=== PATIENT | male | born 1990 | race Caucasian/White ===

== ENCOUNTER → 2019-02-25 | Outpatient (CLI) | payer BC ==
[~2019-02-25] MED LIST: AZIT250 PO; BENZ100A PO; CETI10 PO; CYCL10 PO; DIPATR PO; ESCI10; Epipen0.3 MG/0.3 IM; Flomax0.4 MG PO; HYDACE5 PO; HYDGUAL120 PO; IBUP800 PO; IBUPROFEN; KETO10 PO; LIDO2TG30 TP; NAPR500 PO; Norco 5-325 Ta1 EACH PO; Percocet 5-3251 EACH PO; RXCLIN PO; RXDIPATR PO; RXHYDACE PO; RXHYDGUAS PO; RXPROM25 PO; Zofran Odt4 MG SL
[2019-02-25 14:32] LABS: Alanine Aminotransfer (ALT/SGP 72 U/L (12-78); Albumin, Blood 3.9 g/dL (3.4-5.0); Albumin/Globulin Ratio 1.1 (0.8-1.8); Alk Phos 98 U/L (50-136); Anion Gap 7 mmol/L (6-16); Aspartate Aminotrans (AST/SGOT 77 U/L (12-37); Bilirubin, Total 0.3 mg/dL (0.1-1.0); Blood Urea Nitrogen 11 mg/dL (8-24); CHOL/HDL RATIO 2.9; CO2, Blood 24 mmol/L (21-32); Calcium, Blood 8.8 mg/dL (8.5-10.1); Chloride, Blood 111 mmol/L (98-108); Cholesterol 185 mg/dL (50-200); Globulin, Blood 3.6 g/dL (2.2-4.0); Glucose, Blood 89 mg/dL (70-99); HDL Cholesterol 63 mg/dL (>39); LDL/HDL RATIO 0.8; Low Density Lipoprotein Chol 50 mg/dL (0-110); Potassium, Blood 4.3 mmol/L (3.5-5.5); Sodium, Blood 142 mmol/L (136-145); Total Protein, Blood 7.5 g/dL (6.4-8.2); Triglycerides 359 mg/dL (30-140); Very Low Density Lipoprot Chol 71 mg/dL (6-28)
[2019-02-25 14:33] LABS: Bun/Creatinine Ratio 15.4 (12.0-20.0); Creatinine, Blood 0.72 mg/dL (0.60-1.20); Glomerular Filtration Rate >60 (60-)
== END | disposition home or self-care (01) ==
LOC: LAB 14:01 → LAB SHORT 14:01
PROVIDERS: Hospitalist
DX: Z00.00 Encounter for general adult medical examination without abnormal findings (principal)
CPT/HCPCS: 80053; 80061

== ENCOUNTER → 2023-03-22 | Outpatient (CLI) | payer BC ==
[2023-03-22 21:52] LABS: Albumin, Blood 3.9 g/dL (3.4-5.0); Albumin/Globulin Ratio 1.1 (0.8-1.8); Bilirubin, Total 0.8 mg/dL (0.1-1.0); Bun/Creatinine Ratio 16.7 (12.0-20.0); Calcium, Blood 9.1 mg/dL (8.5-10.1); Creatinine, Blood 0.84 mg/dL (0.60-1.20); Globulin, Blood 3.5 g/dL (2.2-4.0); Potassium, Blood 3.7 mmol/L (3.5-5.5); Total Protein, Blood 7.4 g/dL (6.4-8.2)
== END | disposition home or self-care (01) ==
LOC: LAB SHORT 17:49
PROVIDERS: Nurse Practitioner Family
DX: R94.5 Abnormal results of liver function studies (principal)
CPT/HCPCS: 80053